=== PATIENT | female | born 1955 ===

== ENCOUNTER 2024-11-26 12:37 | Outpatient (REF) | payer MEDICARE, SELFPAY ==
[2024-11-26 14:32] LABS: Abs Immature Grans 0.02 10^3/uL (0.0-0.06); Absolute Basophil Count 0.07 10^3/uL (0.0-0.2); Absolute Eosinophil Count 0.11 10^3/uL (0.0-0.7); Absolute Monocyte Count 0.43 10^3/uL (0.1-0.8); Absolute Neutrophil Count 3.06 10^3/uL (1.2-6.7); Basophils % 1.2 %; Eosinophils % 1.8 %; HCT 43.8 % (36.0-46.0); HGB 14.1 g/dL (11.2-15.7); Immature Grans % 0.3 %; Lymphocytes % 38.4 %; MCHC 32.2 % (32.0-36.0); MCV 100 fL (80-95); MPV 9.6 fL (8.0-11.0); Monocytes % 7.2 %; Neutrophils % 51.1 %; Platelet Count 331 10^3/uL (130-400); RDW 11.9 % (11.7-14.6); RDW-SD 44.2 fL; WBC 5.99 10^3/uL (4.4-10.8)
[2024-11-26 16:59] LABS: ALT 23 U/L (14-59); AST 18 U/L (15-37); Albumin 3.8 g/dL (3.4-5.0); Alkaline Phosphatase 78 U/L (46-116); Anion Gap 10.2 mmol/L (3-11); BUN 18 mg/dL (7-18); Bilirubin, Total 0.4 mg/dL (0.2-1.0); CO2 28.8 mmol/L (21.0-32.0); CREATININE 0.7 mg/dL (0.55-1.02); Calcium 9.7 mg/dL (8.5-10.1); Chloride 107 mmol/L (98-107); Estimated GFR 92.41 (mL/min/1.73m2); Glucose 96 mg/dL (74-106); Potassium 4.5 mmol/L (3.5-5.1); Sodium 146 mmol/L (136-145); TSH 2.17 uIU/mL (0.36-3.74); Total Protein 6.7 g/dL (6.4-8.2)
[2024-11-26 19:57] LABS: Ferritin 49 ng/mL (8-252); Vitamin D 25 Total 65 ng/mL (30-100)
== END 2024-11-26 12:38 | disposition home or self-care (01) ==
LOC: NCHCN 12:37
PROVIDERS: Visit Provider Family Medicine
DX: D64.9 Anemia, unspecified (principal); R63.5 Abnormal weight gain; I10 Essential (primary) hypertension
CPT/HCPCS: 80053; 82306; 82728; 84443; 85025